=== PATIENT | female | born 1940 | race Caucasian/White ===

== ENCOUNTER 2017-10-05 22:32 | Inpatient (IN) | payer OTHER ==
[~2017-10-05] VITALS: Ht 175.3 cm; Wt 103.6 kg
[2017-10-05 23:57] LABS: Basophils # (auto) 0 uL; Basophils % (auto) 0.7 % (0.0-2.0); Eosinophils # (auto) 0 uL; Eosinophils % (auto) 0.4 % (0.0-7.0); Hematocrit 38.4 % (36.0-46.0); Hemoglobin 12.6 g/dL (12.2-16.2); Lymphocytes # (auto) 0.7 uL; Lymphocytes % (auto) 11.6 % (10.0-50.0); Mean Corpuscular Hemoglobin 30.5 pg (28.0-32.0); Mean Corpuscular Hgb Conc. 32.8 g/dL (32.0-36.0); Mean Corpuscular Volume 92.9 fL (80.0-100.0); Monocytes # (auto) 0.7 uL; Monocytes % (auto) 10.8 % (0.0-12.0); Neutrophils # (auto) 4.7 uL; Neutrophils % (auto) 76.5 % (37.0-80.0); Platelet Count (auto) 204 10^3/uL (140-450); Red Blood Cells 4.14 10^6/uL (4.0-5.20); Red Cell Distribution Width 14.9 % (11.8-14.3); White Blood Cell 6.2 10^3/uL (4.4-10.8)
[2017-10-06 00:15] LABS: Albumin 2.8 g/dL (3.4-5.0); BUN/Creatinine Ratio 17.3; Calcium 7.9 mg/dL (8.5-10.1); Magnesium 1.7 mg/dL (1.6-2.6); Potassium 3.7 mmol/L (3.5-5.1)
[2017-10-06 00:20] LABS: Bilirubin, Total 0.3 mg/dL (0.2-1.0); Total Protein 6.8 g/dL (6.4-8.2)
[2017-10-06] MEDS ORDERED: FUROSEMIDE 20 MG/2 ML VIAL IV ONE (03:15)
[2017-10-06] MEDS ORDERED: MORPHINE SULFATE 4 MG/ML SYR/VIAL IV PRN (03:45)
[2017-10-06] MEDS ORDERED: NITROGLYCERIN 0.4 MG SL TAB SL PRN (03:45)
[2017-10-06] MEDS ORDERED: ACETAMINOPHEN 500 MG TAB PO PRN (05:00)
[2017-10-06] MEDS ORDERED: ONDANSETRON HCL 4 MG/2 ML VIAL IV PRN (05:00)
[2017-10-06] MEDS ORDERED: HYDROcodone-ACET 5/325MG TAB PO PRN (05:00)
[2017-10-06 05:58] LABS: Basophils # (auto) 0.1 uL; Eosinophils # (auto) 0 uL; Eosinophils % (auto) 0.3 % (0.0-7.0); Hematocrit 40.7 % (36.0-46.0); Hemoglobin 13.4 g/dL (12.2-16.2); Lymphocytes % (auto) 19.3 % (10.0-50.0); Mean Corpuscular Hemoglobin 30.4 pg (28.0-32.0); Mean Corpuscular Hgb Conc. 32.8 g/dL (32.0-36.0); Mean Corpuscular Volume 92.7 fL (80.0-100.0); Monocytes # (auto) 0.4 uL; Monocytes % (auto) 8.8 % (0.0-12.0); Neutrophils # (auto) 3.5 uL; Neutrophils % (auto) 70.6 % (37.0-80.0); Nucleated Red Blood Cells % 0.1 %; Platelet Count (auto) 215 10^3/uL (140-450); Red Blood Cells 4.39 10^6/uL (4.0-5.20); Red Cell Distribution Width 15.4 % (11.8-14.3)
[2017-10-06 06:21] LABS: Urine Bacteria FEW /hpf (None Seen); Urine Blood TRACE /uL (Negative); Urine Mucus FEW (None Seen); Urine Specific Gravity 1.008 (1.001-1.035); Urine WBC 39 /hpf (0 - 5)
[2017-10-06 06:23] LABS: Potassium 4.1 mmol/L (3.5-5.1)
[2017-10-06 06:26] LABS: BUN/Creatinine Ratio 19.6; Calcium 8.3 mg/dL (8.5-10.1)
[2017-10-06 06:34] LABS: Cholesterol 189 mg/dL (< 200); HDL Cholesterol 48 mg/dL (40-59); LDL Cholesterol 121 mg/dL (< 100); Triglycerides 129 mg/dL (< 150)
[2017-10-06] MEDS: ASPirin-EC 81 mg tab PO SCH (09:59)
[2017-10-06] MEDS ORDERED: SODIUM CHLORIDE 0.9% 1,000 ML IV ONE (15:15)
[2017-10-06 16:08] VITALS: BP 138/80
[2017-10-06] MEDS: SODIUM CHLORIDE 0.9% 1,000 ML IV SCH (18:00)
[2017-10-06 23:57] VITALS: BP 132/66
[2017-10-07] MEDS: SODIUM CHLORIDE 0.9% 1,000 ML IV SCH ×2 (05:26→15:22)
[2017-10-07 05:35] VITALS: BP 112/51
[2017-10-07 07:14] LABS: Basophils # (auto) 0 uL; Basophils % (auto) 1.2 % (0.0-2.0); Eosinophils # (auto) 0 uL; Hematocrit 38.5 % (36.0-46.0); Hemoglobin 12.8 g/dL (12.2-16.2); Lymphocytes # (auto) 1.1 uL; Lymphocytes % (auto) 26.2 % (10.0-50.0); Mean Corpuscular Hemoglobin 30.7 pg (28.0-32.0); Mean Corpuscular Hgb Conc. 33.3 g/dL (32.0-36.0); Mean Corpuscular Volume 92.3 fL (80.0-100.0); Monocytes # (auto) 0.4 uL; Monocytes % (auto) 10.3 % (0.0-12.0); Neutrophils # (auto) 2.5 uL; Neutrophils % (auto) 61.3 % (37.0-80.0); Nucleated Red Blood Cells % 0.1 %; Platelet Count (auto) 208 10^3/uL (140-450); Red Blood Cells 4.17 10^6/uL (4.0-5.20); Red Cell Distribution Width 15.2 % (11.8-14.3)
[2017-10-07 07:31] LABS: BUN/Creatinine Ratio 21.3; Potassium 3.9 mmol/L (3.5-5.1)
[2017-10-07 08:00] VITALS: BP 138/65
[2017-10-07 09:00] VITALS: BP 138/65
[2017-10-07] MEDS: ASPirin-EC 81 mg tab PO SCH (11:19)
[2017-10-07] MEDS ORDERED: LEVO150T10 PO ×2 (11:36→11:46)
[2017-10-07] MEDS ORDERED: LOVA40TA72 PO (11:39)
[2017-10-07] MEDS ORDERED: NAP500T GT (11:39)
[2017-10-07] MEDS ORDERED: LISI-646 PO (11:45)
[2017-10-07] MEDS ORDERED: ALLO300T2 PO (11:46)
[2017-10-07 13:00] VITALS: BP 110/63
[2017-10-07 16:10] VITALS: BP 117/85
[2017-10-07 17:00] VITALS: BP 146/70
== END 2017-10-07 18:00 | disposition home or self-care (01) | DRG 682 ==
LOC: EDBD 22:32 → ER 22:44 → TELE 22:45 → TELE-EAST 10-06 16:04
PROVIDERS: ADMIT Nurse Practitioner Family; ATTEND Internal Medicine
DX: N17.9 Acute kidney failure, unspecified (principal); I50.31 Acute diastolic (congestive) heart failure; N39.0 Urinary tract infection, site not specified; R55 Syncope and collapse; I11.0 Hypertensive heart disease with heart failure; I50.9 Heart failure, unspecified; E03.9 Hypothyroidism, unspecified; E66.01 Morbid (severe) obesity due to excess calories; J06.9 Acute upper respiratory infection, unspecified; N27.0 Small kidney, unilateral; Z85.850 Personal history of malignant neoplasm of thyroid; Z68.33 Body mass index [BMI] 33.0-33.9, adult; Z90.49 Acquired absence of other specified parts of digestive tract; Z90.89 Acquired absence of other organs
CPT/HCPCS: 36415; 51702; 70450; 71045; 76775; 80048; 80053; 80061; 81001; 82962; 83735; 83880; 84443; 84484; 85025; 87400; 93005; 93886; 96374